=== PATIENT | male | born 1980 | race Caucasian/White ===

== ENCOUNTER 2017-04-11 14:06 | Emergency (ER) | payer MEDICARE, OTHER, SELFPAY | END 2017-04-11 15:18 | disposition home or self-care (01) | DX: J11.1 Influenza due to unidentified influenza virus with other respiratory manifestations (principal) | CPT/HCPCS: 87804 ==

== ENCOUNTER 2017-04-25 12:46 | Emergency (ER) | payer MEDICARE, MEDICAID, SELFPAY ==
[2017-04-25 12:46] VITALS: BP 127/82; PULSE 79; RESP 16; TEMP 36.9; O2SAT 100; BMI 24.3
[2017-04-25 13:36] LABS: Strep Scrn Group A (Rapid) Negative (Negative)
--- NOTE | 2017-04-25 14:27 | [facility].EDGENADL ---
ED Disposition Clinical Impression: Sinusitis, acute, Upper respiratory infection, Viral infection Disposition: Home, Self-Care Condition on Discharge: Good Instructions: Sinusitis Additional Instructions: stat abx see Toni Taylor as scheduled tomorrow and follow up on the resp panel results. Prescriptions: Amoxicillin [Amoxicillin 500mg Cap] 500 mg PO TID #30 cap - Critical Care Critical Care Time: No Attestation: On 04/25/17, the high probability of a clinically significant, sudden or life threatening deterioration of the following system(s) required my full and direct attention, intervention and personal management. The time I documented below is in addition to time spent performing reported procedures but includes the following listed in this critical care notation. Medical Decision Making Vital Signs: 04/25/17 12:46 Temperature 98.5 F Temperature Source Oral Pulse Rate [Right Brachial] 79 Respiratory Rate 16 Blood Pressure [Right Arm] 127/82 Blood Pressure Mean [Right Arm] 97 Blood Pressure Source [Right Arm] Automatic Cuff Blood Pressure Position [Right Arm] Sitting 02 Sat by Pulse Oximetry 100 Oxygen Delivery Method Room Air - Lab Data Lab Results 04/25/17 13:00: Group A Strep Rapid Negative Orders (Tests/Meds): ORDERS Category Date Time Status Upper Respiratory Panel, PCR Stat Lab 04/25/17 13:58 Ordered Strep Screen Confirmation Stat Micro 04/25/17 13:00 Received - Jl Inquiry Pt receiving controlled substance: No Jl was queried for this patient: No Medical Decision Making Narrative: I discussed with Mr. Yang that he was treated for the Tamiflu and respiratory panel will test for other viruses that has no antiviral therapy. He currently has a right acute maxillary sinusitis and will start him on antibiotic. He requested cough medicine and I will give him prescription. Scheduled to see Dr. Haro in the morning. Advised him to follow-up on a respiratory panel during that visit. He verbally understanding. General Adult HPI - General Chief complaint: Upper Respiratory Infection Stated complaint: chest congestion,cough,headache,nausea Mode of Arrival: Ambulatory Source of Information: Patient, Spouse, Significant Other, Relative Limitations: No Limitations Description of Symptoms (Recalled from ER Triage Doc. by RN): cough, congestion, abdominal pain and diarrhea for 1 week - History of Present Illness Onset (ago): day(s) (14 days.) Location: face Radiation: non-radiation Consistency: constant Relieving factors: medication Exacerbating factors: other (Cough) Associated symptoms: denies other symptoms Treatments prior to arrival: none - Related Data Previous Rx's Medication Instructions Recorded Amoxicillin [Amoxicillin 500mg 500 mg PO TID #30 cap 04/25/17 Cap] Allergies Allergy/AdvReac Type Severity Reaction Status Date / Time sulfamethoxazole Allergy Mild Hives Verified 04/25/17 13:34 [From BACTRIM] trimethoprim [From BACTRIM] Allergy Mild Hives Verified 04/25/17 13:34 [facility] History I have reviewed the patient's past medical history: Yes Medical History: Denies:: Cancer, Diabetes Mellitus Type 1, Diabetes Mellitus Type 2, MRSA Amputation: No Fractures: Yes (jaw) - *Social History Educational Level: Attended High School Smoking Status: Never smoker Alcohol Intake: never - Psychiatric History Expresses thoughts of harming self/others: None Suicide Plan Description: No Plan ROS Obtained: Yes All systems reviewed & no additional complaints - Constitutional Constitutional: Reports as per HPI - Eyes Eyes: Reports as per HPI - ENT Ears, Nose, Mouth, and Throat: Reports as per HPI - Cardiovascular Cardiovascular: Reports as per HPI - Respiratory Respiratory: Yes as per HPI - Gastrointestinal Gastrointestingal: Reports: as per HPI - Genitourinary Male Genitourinary: Reports as per HPI
--- NOTE | 2017-04-25 14:31 | ED_ITS ---
ED Disposition Clinical Impression: Sinusitis, acute, Upper respiratory infection, Viral infection Disposition: Home, Self-Care Condition on Discharge: Good Instructions: Sinusitis Additional Instructions: stat abx see Toni Taylor as scheduled tomorrow and follow up on the resp panel results. Prescriptions: Amoxicillin [Amoxicillin 500mg Cap] 500 mg PO TID #30 cap - Critical Care Critical Care Time: No Attestation: On 04/25/17, the high probability of a clinically significant, sudden or life threatening deterioration of the following system(s) required my full and direct attention, intervention and personal management. The time I documented below is in addition to time spent performing reported procedures but includes the following listed in this critical care notation. Medical Decision Making Vital Signs: 04/25/17 12:46 Temperature 98.5 F Temperature Source Oral Pulse Rate [Right Brachial] 79 Respiratory Rate 16 Blood Pressure [Right Arm] 127/82 Blood Pressure Mean [Right Arm] 97 Blood Pressure Source [Right Arm] Automatic Cuff Blood Pressure Position [Right Arm] Sitting 02 Sat by Pulse Oximetry 100 Oxygen Delivery Method Room Air - Lab Data Lab Results 04/25/17 13:00: Group A Strep Rapid Negative Orders (Tests/Meds): ORDERS Category Date Time Status Upper Respiratory Panel, PCR Stat Lab 04/25/17 13:58 Ordered Strep Screen Confirmation Stat Micro 04/25/17 13:00 Received - Jl Inquiry Pt receiving controlled substance: No Jl was queried for this patient: No Medical Decision Making Narrative: I discussed with Mr. Yang that he was treated for the Tamiflu and respiratory panel will test for other viruses that has no antiviral therapy. He currently has a right acute maxillary sinusitis and will start him on antibiotic. He requested cough medicine and I will give him prescription. Scheduled to see Dr. Haro in the morning. Advised him to follow-up on a respiratory panel during that visit. He verbally understanding. General Adult HPI - General Chief complaint: Upper Respiratory Infection Stated complaint: chest congestion,cough,headache,nausea Mode of Arrival: Ambulatory Source of Information: Patient, Spouse, Significant Other, Relative Limitations: No Limitations Description of Symptoms (Recalled from ER Triage Doc. by RN): cough, congestion , abdominal pain and diarrhea for 1 week - History of Present Illness Onset (ago): day(s) (14 days.) Location: face Radiation: non-radiation Consistency: constant Relieving factors: medication Exacerbating factors: other (Cough) Associated symptoms: denies other symptoms Treatments prior to arrival: none - Related Data Previous Rx's Medication Instructions Recorded Amoxicillin [Amoxicillin 500mg 500 mg PO TID #30 cap 04/25/17 Cap] Allergies Allergy/AdvReac Type Severity Reaction Status Date / Time sulfamethoxazole Allergy Mild Hives Verified 04/25/17 13:34 [From BACTRIM] trimethoprim [From BACTRIM] Allergy Mild Hives Verified 04/25/17 13:34 [facility] History I have reviewed the patient's past medical history: Yes Medical History: Denies:: Cancer, Diabetes Mellitus Type 1, Diabetes Mellitus Type 2, MRSA Amputation: No Fractures:
[2017-04-25 14:42] VITALS: BP 124/68; PULSE 69; RESP 16; TEMP 36.9; O2SAT 100
== END 2017-04-25 14:44 | disposition home or self-care (01) ==
PROVIDERS: Emergency Provider Emergency Medicine; Family Provider Family Medicine
DX: J06.9 Acute upper respiratory infection, unspecified (principal); J32.9 Chronic sinusitis, unspecified
CPT/HCPCS: 87430; 99284

== ENCOUNTER → 2017-04-26 10:53 | Outpatient (REF) | payer OTHER, MEDICARE, SELFPAY | LOC: LAB 10:53 | PROVIDERS: Visit Provider Emergency Medicine | DX: Z79.899 Other long term (current) drug therapy (principal) ==